=== PATIENT | male | born 1975 | race Caucasian/White ===

== ENCOUNTER → 2017-11-15 | Outpatient (CLI) | payer BC ==
[2016-07-19 19:13] VITALS: BP 114/67
[~2017-11-15] MED LIST: IOHEXOL 300 MG/ML 75 ML VIAL. IV ONE
--- NOTE | 2017-11-15 17:02 | RAD ---
PQRS Compliance Statement: One or more of the following individualized dose reduction techniques were utilized for this examination: 1. Automated exposure control 2. Adjustment of the mA and/or kV according to patient size 3. Use of iterative reconstruction technique CT ANGIOGRAPHY HEAD Clinical Indication: Aneurysm SEEN ON MRA Comparison: None. Technique: Helical CT imaging of the brain is performed precontrast. Helical CT imaging from the skull base to the skull vertex is performed after 75 cc of Omnipaque [address] angiogram protocol. 3-D MIP reconstructions of the [place] are performed. PQRS Compliance Statement - Stenosis calculations for CT, MR and conventional angiography are based upon measurement of the distal ICA diameter in accordance with the NASCET methodology. Stenosis calculations for carotid ultrasound studies are derived from validated velocity criteria which are known to correlate with the NASCET methodology. Findings: Noncontrast CT head is negative. Distal vertebral arteries are codominant. The basilar artery is patent. Posterior cerebral arteries are intact. There is attenuation of the petrous internal carotid arteries that is favored to be due to artifact. The cavernous internal carotid arteries are patent. Anterior cerebral arteries are patent. The middle cerebral arteries are patent. No intracranial aneurysm is identified by CT. There is no occlusion or significant focal stenosis. There is no abnormal enhancement in the brain parenchyma. IMPRESSION: Normal CTA head findings. No intracranial aneurysm is identified. Electronically signed by: Ash Chowdary MD (11/15/2017 4:58 PM) [id number]
== END | disposition home or self-care (01) ==
LOC: CT 13:02
PROVIDERS: ATTEND Family Medicine
DX: R93.0 Abnormal findings on diagnostic imaging of skull and head, not elsewhere classified (principal)
CPT/HCPCS: 70496; Q9967

== ENCOUNTER 2018-05-20 20:15 | Emergency (ER) | payer OTHER, BC ==
[~2018-05-20] VITALS: Ht 185.4 cm; Wt 138.3 kg
[2018-05-20 20:15] VITALS: BP 124/69
--- NOTE | 2018-05-20 20:44 | PHYS DOC ---
Adult General Chief Complaint Chief Complaint fall HPI HPI 42 years old male presented emergency department with a fall down stairs he is complaining of right elbow pain and left leg pain is able to ambulate able to move his elbow in all direction was able to take his clothes off by himself Review of Systems Review of Systems Constitutional: Denies fever or chills [] Eyes: Denies change in visual acuity, redness, or eye pain [] HENT: Denies nasal congestion or sore throat [] Respiratory: Denies cough or shortness of breath [] Cardiovascular: No additional information not addressed in HPI [] GI: Denies abdominal pain, nausea, vomiting, bloody stools or diarrhea [] : Denies dysuria or hematuria []] Integument: Denies rash or skin lesions [] Neurologic: Denies headache, focal weakness or sensory changes [] Endocrine: Denies polyuria or polydipsia [] All other systems were reviewed and found to be within normal limits, except as documented in this note. Allergies Allergies Allergies Coded Allergies Type Severity Reaction Last Updated Verified No Known Drug Allergies 07/19/16 No Physical Exam Physical Exam Constitutional: Well developed, well nourished, no acute distress, non-toxic appearance. [] HENT: Normocephalic, atraumatic, bilateral external ears normal, oropharynx moist, no oral exudates, nose normal. [] Eyes: PERRLA, EOMI, conjunctiva normal, no discharge. [] Neck: Normal range of motion, no tenderness, supple, no stridor. [] Cardiovascular:Heart rate regular rhythm, no murmur [] Lungs & Thorax: Bilateral breath sounds clear to auscultation [] Abdomen: Bowel sounds normal, soft, no tenderness, no masses, no pulsatile masses. [] Skin: Warm, dry, no erythema, no rash. [] Back: No tenderness, no CVA tenderness. [] Extremities: + tenderness on the right elbow and left leg , no cyanosis, no clubbing, ROM intact, no edema. [] Neurologic: Alert and oriented X 3, normal motor function, normal sensory function, no focal deficits noted. [] Psychologic: Affect normal, judgement normal, mood normal. [] EKG EKG [] Radiology/Procedures Radiology/Procedures [] Course & Med Decision Making Course & Med Decision Making Pertinent Labs and Imaging studies reviewed. (See chart for details) [] Final Impression Final Impression [] Problems: (1) Contusion of arm, right Qualifiers: Qualified Codes: S40.021A - Contusion of right upper arm, initial encounter Dragon Disclaimer Dragon Disclaimer This electronic medical record was generated, in whole or in part, using a voice recognition dictation system. TIERRA PECK MD May 20, 2018 20:44
[2018-05-20] MEDS ORDERED: IBUPROFEN 600 MG TABLET. PO ONE (21:00)
--- NOTE | 2018-05-20 21:37 | RAD ---
Examination: ELBOW RIGHT 3V History: Trauma from fall on stairs, severe pain Comparison/Correlation: None Findings: Total of 3 images of the right elbow were provided for interpretation. Joint spaces are normal. No evidence of joint effusion. No definite findings to suggest fracture. No definite degenerative change. Impression: No displaced fracture. No secondary findings of fracture such as joint effusion. Correlate clinically in determining follow-up. Electronically signed by: Anish Maldonado MD (05/20/2018 9:33 PM) [facility]
--- NOTE | 2018-05-20 21:54 | RAD ---
Examination: TIBIA FIBULA LEFT History: Trauma from fall on stairs, severe pain Comparison/Correlation: None Findings: Frontal and lateral views of the left tibia and fibula were obtained. Joint spaces are adequate. No acute fracture or bony destruction. Soft tissues are normal. Impression: Normal left tibia and fibula x-ray exam. Electronically signed by: Anish Maldonado MD (05/20/2018 9:50 PM) [facility]
== END 2018-05-20 22:18 | disposition home or self-care (01) ==
LOC: ER 20:15
DX: S40.021A Contusion of right upper arm, initial encounter (principal); M79.605 Pain in left leg; W10.8XXA Fall (on) (from) other stairs and steps, initial encounter; Y93.89 Activity, other specified; Y92.89 Other specified places as the place of occurrence of the external cause; Y99.8 Other external cause status
CPT/HCPCS: 73080; 73590; 99283